=== PATIENT | female | born 1955 | race Caucasian/White ===

== ENCOUNTER 2018-09-29 22:20 | Emergency (ER) | payer OTHER ==
[~2018-09-29] VITALS: Ht 162.6 cm; Wt 81.6 kg
[~2018-09-29 22:20] MED LIST: ALLEGRA-D 24 H1 EACH; ATARAX25 MG PO; DICLOFENAC POTA50 MG; LOTRISONE CREAM45 GM TOP; MEDROLPACK PO; NORFLEX100MG PO
[2018-09-30] MEDS ORDERED: NORFLEX100MG PO (01:08)
== END 2018-09-30 01:37 | disposition home or self-care (01) ==
LOC: ER 22:20
DX: S40.011A Contusion of right shoulder, initial encounter (principal); S60.211A Contusion of right wrist, initial encounter; S50.01XA Contusion of right elbow, initial encounter; S30.0XXA Contusion of lower back and pelvis, initial encounter; W18.09XA Striking against other object with subsequent fall, initial encounter; Y93.89 Activity, other specified; Y92.098 Other place in other non-institutional residence as the place of occurrence of the external cause; Y99.8 Other external cause status

== ENCOUNTER → 2023-09-21 | Emergency (ER) | payer OTHER ==
[~2023-09-21] VITALS: Ht 162.6 cm; Wt 81.2 kg
[~2023-09-21] MED LIST changes: +ACID REDUCER20 M1 PO; +DICLOFENAC POTA50 MG PO; +KETOROLAC TROMETHAMINE 30 MG VIAL IM STA; +LEVOTHYROXINE25 MCG; +TYLENOL ARTHRI650 MG; +ZOLPIDEM TART1.75 MG
== END | disposition home or self-care (01) ==
LOC: ER 18:47
DX: S83.8X1A Sprain of other specified parts of right knee, initial encounter (principal); W19.XXXA Unspecified fall, initial encounter; Y93.89 Activity, other specified; Y92.098 Other place in other non-institutional residence as the place of occurrence of the external cause; Y99.8 Other external cause status; I10 Essential (primary) hypertension; E03.8 Other specified hypothyroidism
CPT/HCPCS: 29505; 73560; 96372; 99283; J1885